=== PATIENT | female | born 1960 | race Caucasian/White ===

== ENCOUNTER 2019-05-09 09:24 | Day surgery (SDC) | payer BC ==
[~2019-05-09] VITALS: Ht 157.5 cm; Wt 81.0 kg
[~2019-05-09 09:24] MED LIST: ALBU8.5H5 INH; CYCL5TAB PO; IBUP-1223 PO; POTA99TA2 PO; POTASSIU PO
[2019-05-09] MEDS ORDERED: LACTATED RINGERS 1,000 ML IV SCH (10:07)
[2019-05-09 10:09] VITALS: BP 180/93
[2019-05-09] MEDS ORDERED: GABAPENTIN 300 MG CAPSULE PO ONE (10:30)
[2019-05-09] MEDS ORDERED: ACETAMINOPHEN 500 MG TABLET PO ONE (10:30)
[2019-05-09] MEDS ORDERED: FENTANYL PF 250 MCG/5ML ONE (11:13)
[2019-05-09] MEDS ORDERED: KETOROLAC 30 MG/1 ML ONE (11:52)
[2019-05-09] MEDS ORDERED: HYDROmorphone 2 MG/ML, 1ML IVPush PRN (12:00)
[2019-05-09] MEDS ORDERED: PROMETHAZINE 25 MG/ML, 1ML IV PRN (12:00)
[2019-05-09] MEDS ORDERED: HALOPERIDOL 5 MG/ML IV PRN (12:00)
[2019-05-09] MEDS ORDERED: MEPERIDINE/PF 25MG/ML,1ML IVPush PRN (12:00)
[2019-05-09] MEDS ORDERED: OXYcodone 5 MG/5 ML ORAL.SOL UDC PO PRN (12:00)
[2019-05-09] MEDS ORDERED: hydrALAzine 20 MG/ML, 1ML IV PRN (12:00)
[2019-05-09] MEDS ORDERED: FENTANYL PF 100 MCG/2ML IV PRN (12:00)
[2019-05-09] MEDS ORDERED: ALBUTEROL SULFATE 2.5 MG/3 ML NPPB PRN (12:00)
[2019-05-09] MEDS ORDERED: LABETALOL 5MG/ML, 20ML IV PRN (12:00)
[2019-05-09] MEDS ORDERED: ONDANSETRON 2MG/ML, 2ML IV PRN (13:00)
[2019-05-09] MEDS ORDERED: KETOROLAC 30 MG/1 ML IV PRN (13:00)
[2019-05-09] MEDS ORDERED: HYDROcodone/APAP 5/325 TABLET PO PRN (13:00)
[2019-05-09] MEDS ORDERED: OXYcodone 5 MG/5 ML ORAL.SOL UDC ONE (13:01)
[2019-05-09] MEDS ORDERED: NEOSTIGMINE 1 MG/ML, 10ML ONE (13:39)
[2019-05-09] MEDS ORDERED: DEXAMETHASONE 4 MG/ML, 1ML ONE (13:39)
[2019-05-09] MEDS ORDERED: ONDANSETRON 2MG/ML, 2ML ONE (13:39)
[2019-05-09] MEDS ORDERED: PROPOFOL 10 MG/ML, 20ML ONE (13:39)
[2019-05-09] MEDS ORDERED: ROCURONIUM 10MG/ML,5ML ONE (13:39)
[2019-05-09] MEDS ORDERED: SUCCINYLCHOLINE 20 MG/ML, 10ML ONE (13:39)
[2019-05-09] MEDS ORDERED: GLYCOPYRROLATE 0.2MG/1ML, 5ML ONE (13:39)
[2019-05-09] MEDS ORDERED: CEFAZOLIN 1,000 MG ONE (13:39)
[2019-05-09] MEDS ORDERED: PHENAZOPYRIDINE 200 MG TABLET ONE (13:52)
== END 2019-05-09 14:35 | disposition home or self-care (01) ==
LOC: OUT 09:24
PROVIDERS: ATTEND Urology
DX: N13.2 Hydronephrosis with renal and ureteral calculous obstruction (principal); Z88.5 Allergy status to narcotic agent; Z88.0 Allergy status to penicillin; Z88.8 Allergy status to other drugs, medicaments and biological substances; Z91.040 Latex allergy status; Z91.011 Allergy to milk products; Z98.890 Other specified postprocedural states; Z87.891 Personal history of nicotine dependence; Z72.89 Other problems related to lifestyle
CPT/HCPCS: 52332; 74420; C1769; C2617; J0330; J0690; J1100; J1885; J2405; J2704; J2710; J3010; J7120